=== PATIENT | female | born 1990 | race African-American/Black ===

== ENCOUNTER 2020-04-03 10:43 | Inpatient (IN) | payer OTHER ==
--- NOTE | 2020-04-03 11:04 | PN ---
Delivery - Delivery Vaginal Delivery: No Problems Episiotomy/Laceration: None EBL (cc): 100
--- NOTE | 2020-04-03 11:04 | HP ---
Past Medical History - Admission Chief Complaint: normal labor History Source: Patient Limitations to Obtaining History: No Limitations - Past Medical History ...: 5 ...Para: 3 ...Induced : 1 ... Weeks Gestation by Dates: 41 Heme/Onc: Yes: Anemia - Past Surgical History Past Surgical History: Yes: None Hx Myomectomy: No Hx Transabdominal Cerclage: No - Smoking History Smoking history: Never smoked Have you smoked in the past 12 months: No - Alcohol/Substance Use Hx Alcohol Use: No - Social History Usual Living Arrangement: Yes: With Significant Other History of Recent Travel: No Review of Systems - Review of Systems Constitutional: reports: No Symptoms Eyes: reports: No Symptoms HENT: reports: No Symptoms Neck: reports: No Symptoms Cardiovascular: reports: No Symptoms Respiratory: reports: No Symptoms Gastrointestinal: reports: No Symptoms Genitourinary: reports: No Symptoms Breasts: reports: No Symptoms Reported Musculoskeletal: reports: No Symptoms Integumentary: reports: No Symptoms Neurological: reports: No Symptoms Endocrine: reports: No Symptoms Hematology/Lymphatic: reports: No Symptoms Psychiatric: reports: No Symptoms Assessment/Plan iup at 41 weeks in labor plan delivery
[2020-04-03] MEDS ORDERED: BISACODYL 10 MG SUPP.RECT RC PRN (11:06)
[2020-04-03] MEDS ORDERED: BENZOCAINE 28 GM HEMORRHOIDAL OINTMENT TP PRN (11:06)
[2020-04-03] MEDS ORDERED: BENZOCAINE 20% 57 GM BOTTLE TP PRN (11:06)
[2020-04-03] MEDS ORDERED: WITCH HAZEL 50% (TUCKS) 40 PAD/JAR PAD TP PRN (11:06)
[2020-04-03] MEDS ORDERED: ACETAMINOPHEN 325 MG TABLET (FP) PO ONE (11:15)
[2020-04-03] MEDS ORDERED: IBUPROFEN 600 MG TABLET (FP) PO ONE (11:15)
[2020-04-03] MEDS ORDERED: OXYTOCIN 20 UNITS in 0.9% NS 20 UNIT/1,000 ML INFUS.BAG IV SCH (11:15)
[2020-04-03 12:24] VITALS: BMI 31.7
[2020-04-03] MEDS ORDERED: OXYTOCIN 20 UNITS in 0.9% NS 20 UNIT/1,000 ML INFUS.BAG IV ONE (12:49)
[2020-04-03 13:16] LABS: BASO % 0.2 % (0-2.0); EOS % 0.2 % (0-4.5); HEMATOCRIT 35.1 % (32.4-45.2); HEMOGLOBIN 11.6 GM/dL (10.7-15.3); LYMPH % 24.8 % (8-40); MCH 28.1 pg (25.7-33.7); MEAN CELL VOLUME 85.3 fl (80-96); MEAN PLT VOLUME 8.2 fl (7.5-11.1); MONO % 9.2 % (3.8-10.2); NEUT % 65.6 % (42.8-82.8); PLATELET COUNT 179 K/MM3 (134-434); RBC 4.11 M/mm3 (3.60-5.2); RDW 23.8 % (11.6-15.6); WHITE BLOOD COUNT 6.4 K/mm3 (4.0-10.0)
[2020-04-03 13:25] LABS: INR 0.97 (0.83-1.09); PROTHROMBIN TIME (PATIENT) 11.5 SEC (9.7-13.0)
[2020-04-03 13:28] LABS: ACTIVATED PTT 28.2 SECONDS (25.2-36.5)
[2020-04-03 13:46] LABS: BLOOD UREA NITROGEN 5.7 mg/dL (7-18); CALCIUM 8.1 mg/dL (8.5-10.1); CREATININE 0.5 mg/dL (0.55-1.3); POTASSIUM 3.6 mmol/L (3.5-5.1)
[2020-04-03 13:53] LABS: ANISOCYTOSIS 1+; MACROCYTOSIS 1+; PLATELET ESTIMATE NORMAL
[2020-04-03] MEDS: ACETAMINOPHEN 325 MG TABLET (FP) PO PRN (16:07)
[2020-04-03] MEDS: IBUPROFEN 600 MG TABLET (FP) PO PRN (16:07)
[2020-04-04] MEDS: ACETAMINOPHEN 325 MG TABLET (FP) PO PRN ×3 (00:56→19:57)
[2020-04-04] MEDS: IBUPROFEN 600 MG TABLET (FP) PO PRN ×3 (00:57→19:58)
--- NOTE | 2020-04-04 08:15 | PN ---
Post Progress Note Post Day: 1 Type of Delivery: Vital Signs: Vital Signs Temperature 98.2 F 04/04/20 05:58 Pulse Rate 67 04/04/20 05:58 Respiratory Rate 18 04/04/20 05:58 Blood Pressure 95/49 L 04/04/20 05:58 O2 Sat by Pulse Oximetry (%) Breast Exam: Yes: Soft Uterus: Yes: Fundus Firm, Fundus below umbilicus, Non-tender Abdomen/GI: Yes: Abdomen soft, Tolerating PO Lochia: Yes: Rubra Lochia, amount: Small Extremities: Yes: Calves non-tender Activity: Ambulating - Labs Labs: CBC WBC 6.4 K/mm3 (4.0-10.0) 04/03/20 12:55 RBC 4.11 M/mm3 (3.60-5.2) 04/03/20 12:55 Hgb 11.6 GM/dL (10.7-15.3) 04/03/20 12:55 Hct 35.1 % (32.4-45.2) D 04/03/20 12:55 MCV 85.3 fl (80-96) 04/03/20 12:55 MCH 28.1 pg (25.7-33.7) 04/03/20 12:55 MCHC 33.0 g/dl (32.0-36.0) 04/03/20 12:55 RDW 23.8 % (11.6-15.6) H 04/03/20 12:55 Plt Count 179 K/MM3 (134-434) 04/03/20 12:55 MPV 8.2 fl (7.5-11.1) 04/03/20 12:55 Absolute Neuts (auto) 4.2 K/mm3 (1.5-8.0) 04/03/20 12:55 Neutrophils % 65.6 % (42.8-82.8) 04/03/20 12:55 Lymphocytes % 24.8 % (8-40) 04/03/20 12:55 Monocytes % 9.2 % (3.8-10.2) 04/03/20 12:55 Eosinophils % 0.2 % (0-4.5) 04/03/20 12:55 Basophils % 0.2 % (0-2.0) 04/03/20 12:55 Nucleated RBC % 0 % (0-0) 04/03/20 12:55 Hypochromia 0 04/03/20 12:55 Platelet Estimate Normal 04/03/20 12:55 Polychromasia 0 04/03/20 12:55 Poikilocytosis 1+ 04/03/20 12:55 Anisocytosis 1+ 04/03/20 12:55 Microcytosis 1+ 04/03/20 12:55 Macrocytosis 1+ 04/03/20 12:55 Assessment/Plan S/P , ppd # 1, with no complaints Continue management.
[2020-04-04 09:05] LABS: BASO % 0.6 % (0-2.0); EOS % 0.5 % (0-4.5); HEMATOCRIT 36.9 % (32.4-45.2); LYMPH % 37.1 % (8-40); MCH 27.5 pg (25.7-33.7); MCHC 32.4 g/dl (32.0-36.0); MEAN CELL VOLUME 84.9 fl (80-96); MEAN PLT VOLUME 8.2 fl (7.5-11.1); MONO % 9.9 % (3.8-10.2); NEUT % 51.9 % (42.8-82.8); PLATELET COUNT 205 K/MM3 (134-434); RBC 4.35 M/mm3 (3.60-5.2); RDW 24.2 % (11.6-15.6); WHITE BLOOD COUNT 8.7 K/mm3 (4.0-10.0)
[2020-04-04] MEDS: DOCUSATE SODIUM 100 MG CAPSULE (FP) PO SCH (09:28)
[2020-04-04] MEDS ORDERED: SENNOSIDES/DOCUSATE COMBO (SENNA PLUS) TABLET (UD) PO PRN (22:00)
[2020-04-05] MEDS: ACETAMINOPHEN 325 MG TABLET (FP) PO PRN ×2 (02:38→08:21)
[2020-04-05] MEDS: IBUPROFEN 600 MG TABLET (FP) PO PRN ×2 (02:39→08:22)
--- NOTE | 2020-04-05 05:46 | PN ---
Progress Note (short form) - Note Progress Note: patient without complaints Tolerating diet VS reviewed- wnl Heart and lungs wnl Abdomen- uterus well contracted normal lochial flow no calf tenderness Discharge home after social work evaluation Follow up at health center within 1 week.
--- NOTE | 2020-04-05 05:55 | DS ---
Physical Exam-PEAR[facility] HAND Vital Signs: Vital Signs Temperature 98.3 F 04/04/20 22:00 Pulse Rate 71 04/04/20 22:00 Respiratory Rate 18 04/04/20 22:00 Blood Pressure 117/65 04/04/20 22:00 O2 Sat by Pulse Oximetry (%) Constitutional: Yes: Well Nourished Cardiovascular: Yes: WNL Respiratory: Yes: WNL Gastrointestinal: Yes: WNL Labs: CBC, BMP 04/04/20 08:20 04/03/20 12:55 Delivery - Delivery Vaginal Delivery: No Problems Type of Anesthesia: None Episiotomy/Laceration: None EBL (cc): 300 Delivery, Single - Stages of Labor Date 1st Stage Initiatied: 04/03/20 Time 1st Stage Initiated: 05:00 Date 2nd Stage Initiated: 04/03/20 Time 2nd Stage Initiated: 10:43 Date of Delivery: 04/03/20 Time of Delivery: 10:47 Time Placenta Delivered: 10:53 - Condition of Infant Rn Patient Services/Associate [employer] Present: No Infant Gender: Female Weight: 3.6 kg Position: Left, OA Total Hours ROM (Hrs/Mins): 1min - 1 Minute Total Score: 9 5 Minutes Total Score: 9 - Feeding Plan Initial Plan: Elected not to breastfeed exclusively throughout hospitalization Remarks - Remarks Remarks: Patient s/p vaginal delivery Discharge home follow up at [facility] on 04/08/20 Discharge Summary Problems reviewed: Yes Reason For Visit: LABOR Other Procedures: Hospital Course: uneventful Condition: Stable - Instructions Diet, Activity, Other Instructions: regular diet follow up at [facility] on Tuesday04/08/20 Return to ER if fever >100.4/ severe vaginal bleeding, severe abdominal pain or any unusual symptoms - Home Medications Comprehensive Discharge Medication List: Ambulatory Orders NK [No Known Home Medication] 04/03/20
--- NOTE | 2020-04-05 10:40 | PN ---
Mental Health Exam - Mental Status Exam Alert and Oriented to: Time, Place, Person Cognitive Function: Grossly Intact Patient Appearance: Well Groomed Mood: Sad (3 out of 7 days in a week. "fine till yesterday, when CPS referral" ) Affect: Mood Congruent Patient Behavior: Passive, Appropriate, Cooperative Speech Pattern: Clear Voice Loudness: Normal, Mildly Soft/Quiet Thought Process: Intact, Goal Oriented ('i will like to move to [place]". ) Thought Disorder: Not Present Hallucinations: None Suicidal Ideation: None Homicidal Ideation: None Insight/Judgement: Good Sleep: Difficulty falling asleep (it takes longer than usual, i cant just sleep on as i will it. ) Appetite: Fair Muscle strength/Tone: Normal Gait/Station: Deferred (clutching and cradling the baby.) Additional Comments: This is a 29 Yo female, gave to her 4th child 2 days ago. Mental health called as she was followed by [facility] with a counsellor for anxiety. Client was never hospitalized for psychiatry. She denies suicidal or homicdal ideation, denies auditatory or Visual hallucinations. No delusions are elicited. Client is "sad" , 3/7 days in a week, has mild anxiety on WENDY-7 scale. She is more "annoyed" about CPS being called on her case. Client is passive about this at present. Client denies taking meds in past, not willing to take an SSRI at this time, is willing to see a counsellor, "it may help". No alchol or substance use. Impression. mild anxiety disorder. Plan. referral to mental [facility] for counsellor.
[2020-04-05] MEDS: DOCUSATE SODIUM 100 MG CAPSULE (FP) PO SCH (12:18)
[2020-04-05 17:37] VITALS: BP 114/72; PULSE 68; TEMP 98
== END 2020-04-05 15:20 | disposition home or self-care (01) | DRG 560 ==
LOC: JLDR 10:43 → UNDOADMIN 10:45 → J3W 14:30
PROVIDERS: ADMIT Obstetrics & Gynecology; ATTEND Obstetrics & Gynecology
PROC: 10E0XZZ Delivery of Products of Conception, External Approach (ICD-10-PCS; principal; 2020-04-03)
DX: O48.0 Post-term pregnancy (principal); Z37.0 Single live birth; Z3A.41 41 weeks gestation of pregnancy
CPT/HCPCS: 36415; 59409; 80048; 85025; 85610; 85730; 86780; 86850; 86870; 86900; 86901; 86902; 87389; U0003

== ENCOUNTER 2023-04-26 16:58 | Emergency (ER) | payer OTHER ==
[2023-04-26 17:14] VITALS: BP 105/70; PULSE 83; RESP 19; TEMP 98.1; BMI 24.9
[2023-04-26 19:04] LABS: PH,URINE 5.5 (5.0-8.0); URINE APPEARANCE CLEAR; URINE BILIRUBIN NEGATIVE (NEGATIVE); URINE COLOR YELLOW; URINE GLUCOSE (UA) NEGATIVE (NEGATIVE); URINE KETONE NEGATIVE (NEGATIVE); URINE LEUK ESTERASE NEGATIVE (NEGATIVE); URINE NITRITE NEGATIVE (NEGATIVE); URINE PROTEIN NEGATIVE (NEGATIVE); URINE UROBILINOGEN 0.2 mg/dL (0.2-1.0)
[2023-04-26 19:07] LABS: HCG,QUALITATIVE URINE Negative
== END 2023-04-26 19:42 | disposition home or self-care (01) ==
LOC: JERFT 16:58
DX: N30.00 Acute cystitis without hematuria (principal)
CPT/HCPCS: 81003; 84703; 87086; 99283-25